=== PATIENT | male | born 1985 | race American Indian/Alaskan Native ===

== ENCOUNTER 2016-10-05 23:12 | Emergency (ER) | payer SELFPAY ==
--- NOTE | 2016-10-05 23:43 | C.PDOC ---
History Of Present Illness 31 y.o male brought in by EMS for psychiatric evaluation. As per EMS called when patient was asleep in bathtub and had stated he wanted to kill himself earlier. Patient admits to drinking alcohol and smoking marijuana tonight. He reports history of depression and thoughts of suicide. He states he fell asleep in the tub. He states he has chronic back pain and had taken ibuprofen, drank patron, and went to bathe to relax. Patient denies any prior suicide attempts or other drug use. Time Seen by Provider: 10/05/16 23:33 Chief Complaint (Nursing): Psychiatric Evaluation History Per: Patient History/Exam Limitations: no limitations Current Symptoms Are (Timing): Still Present Suicide/Self Injury Attempted (Context): None Modifying Factor(s): Alcohol, Marijuana Associated Symptoms: Depression Past Medical History Reviewed: Historical Data, Nursing Documentation, Vital Signs Vital Signs: Last Vital Signs Temp 96.9 F L 10/06/16 05:30 Pulse 64 10/06/16 05:30 Resp 16 10/06/16 05:30 BP 147/83 10/06/16 05:30 Pulse Ox 98 10/06/16 05:30 - Medical History PMH: No Chronic Diseases - [facility] Procedures knee surgery Family History: States: Unknown Family Hx - Social History Hx Alcohol Use: Yes Hx Substance Use: Yes - Immunization History Hx Tetanus Toxoid Vaccination: No Hx Influenza Vaccination: No Hx Pneumococcal Vaccination: No Review Of Systems Except As Marked, All Systems Reviewed And Found Negative. Psych: Positive for: Depression, Suicidal ideation Physical Exam - Physical Exam Appears: Non-toxic, No Acute Distress Skin: Normal Color, Warm, No Diaphoretic, No Pale, No Rash Head: Atraumatic, Normacephalic, No Tenderness, No Swelling, No Abrasion Eye(s): bilateral: Normal Inspection, PERRL, EOMI Nose: Normal Oral Mucosa: Moist Neck: Normal ROM Chest: Symmetrical Cardiovascular: Rhythm Regular, No Murmur Respiratory: Normal Breath Sounds, No Accessory Muscle Use, No Wheezing Back: Normal Inspection, No Vertebral Tenderness, No Paraspinal Tenderness Extremity: Normal ROM, No Deformity, No Swelling Neurological/Psych: Oriented x3, Normal Speech Gait: Steady ED Course And Treatment - Laboratory Results Result Diagrams: 10/05/16 23:49 10/05/16 23:49 O2 Sat by Pulse Oximetry: 97 Medical Decision Making Medical Decision Making: Impression: 31 y.o male with history of depression and reports SI Plan: * Labs * 1:1 Obs * Crisis eval Progress: Labs ordered and reviewed. Borderline hypokalemia and mild leukocytosis, nonspecific. Patient has no complaints and denies any fever or cold symptoms. In my clinical judgment patient is medically cleared and stable for psychiatric admission. utility maintenance worker contacted for evaluation. [id number] Still awaiting Crisis evaluation [id number] utility maintenance worker completed evaluation and spoke with psychiatrist Dr Elizondo who states patient stable for discharge. Disposition Counseled Patient/Family Regarding: Diagnosis, Need For Followup - Disposition Disposition: HOME/ ROUTINE Disposition Time: 06:03 Condition: STABLE Additional Instructions: Please follow up with your primary doctor or clinic for further evaluation You may also go to [facility] at [address] [place] [address]. Please call [phone] or ext [phone] to arrange appointment. If you need to speak to someone immediately call Crisis Hotline [phone] Instructions: Mood Disorders (ED) - POA Present On Arrival: None - Clinical Impression Clinical Impression: Adjustment disorder, Anxiety disorder
[2016-10-05 23:46] LABS: RBC URINE 2 /hpf (0-3); URINE BILIRUBIN NEGATIVE (NEGATIVE); URINE BLOOD NEGATIVE (NEGATIVE); URINE COLOR Amber (YELLOW); URINE GLUCOSE (UA) NORMAL (Normal); URINE KETONE TRACE mg/dL (NEGATIVE); URINE LEUKOCYTE ESTERASE NEG Leu/uL (Negative); URINE PROTEIN 1+ mg/dL (NEGATIVE); URINE UROBILINOGEN NORMAL mg/dL (0.2-1.0); WBC URINE 2 /hpf (0-5)
[2016-10-05 23:52] LABS: BASO # 0.1 K/uL (0.0-0.2); BASO % 0.5 % (0.0-2.0); EOS % 0.1 % (0.0-4.0); HEMATOCRIT 46.4 % (35.0-51.0); LYMPH # 1.3 K/uL (1.0-4.3); LYMPH % 8.5 % (20.0-40.0); MEAN CELL VOLUME 88.2 fL (80.0-94.0); MEAN CORPUSCULAR HEMOGLOBIN 29.5 pg (27.0-31.0); MEAN CORPUSCULAR HGB CONC 33.4 g/dL (33.0-37.0); MEAN PLATELET VOLUME 7.3 fL (7.2-11.7); MONO # 0.6 K/uL (0.0-0.8); MONO % 3.8 % (0.0-10.0); PLATELET COUNT 263 K/uL (130-400); WHITE BLOOD COUNT 15.3 K/uL (4.8-10.8)
[2016-10-06 00:25] LABS: CHLORIDE 104 mmol/L (98-107)
[2016-10-06 00:26] LABS: POTASSIUM 3.4 mmol/L (3.6-5.2); SODIUM 140 mmol/L (132-148)
[2016-10-06 00:28] LABS: ALB/GLOB RATIO 1.5 (1.0-2.1); ALKALINE PHOSPHATASE 95 U/L (38-126); ALT/SGPT 38 U/L (21-72); AST/SGOT 38 U/L (17-59); BILIRUBIN,TOTAL 0.5 mg/dL (0.2-1.3); BLOOD UREA NITROGEN 14 mg/dL (9-20); CARBON DIOXIDE 21 mmol/L (22-30); GFR AFRICAN-AMERICAN > 60; TOTAL PROTEIN 7.6 g/dL (6.3-8.3)
[2016-10-06 00:29] LABS: ALCOHOL SERUM < 10 mg/dl (0-10); CALCIUM 9.4 mg/dl (8.6-10.4); GLUCOSE,RANDOM 102 mg/dL (75-110)
[2016-10-06 01:52] LABS: NEUTROPHIL 89 % (50-75); TOTAL CELLS COUNTED 100
[2016-10-06 05:31] VITALS: RESP 16; TEMP 96.9
[2016-10-06 06:16] VITALS: BP 139/81; PULSE 70
[2016-10-06 06:19] VITALS: O2SAT 97
== END 2016-10-06 06:15 | disposition home or self-care (01) ==
LOC: C.ER 23:12 → MERGE 23:12 → EDBD 23:12 → C.ER 10-06 06:15
DX: F43.22 Adjustment disorder with anxiety (principal)
CPT/HCPCS: 80053; 81001; 85025; 99284; G0480